=== PATIENT | female | born 1965 | race African-American/Black ===

== ENCOUNTER 2017-12-02 17:49 | Emergency (ER) | payer MEDICAID ==
[~2017-12-02] VITALS: Ht 160 cm; Wt 70.0 kg
[2017-12-02] MEDS ORDERED: KETOROLAC 60MG/2ML VIAL IM ONE (23:15)
[2017-12-03 00:58] VITALS: BP 144/88
== END 2017-12-03 01:01 | disposition home or self-care (01) ==
LOC: ER 17:49
DX: S93.492A Sprain of other ligament of left ankle, initial encounter (principal); F12.10 Cannabis abuse, uncomplicated; Z90.710 Acquired absence of both cervix and uterus; W01.0XXA Fall on same level from slipping, tripping and stumbling without subsequent striking against object, initial encounter; Y93.89 Activity, other specified; Y92.89 Other specified places as the place of occurrence of the external cause; Y99.8 Other external cause status
CPT/HCPCS: 29515; 73610; 96372; 99284; J1885